=== PATIENT | female | born 1985 | race Caucasian/White ===

== ENCOUNTER 2019-01-09 12:34 | Inpatient (IN) | payer MEDICAID ==
[2019-01-09 14:57] LABS: ADD MAN DIFF? NO
[2019-01-09] MEDS ORDERED: MISOPROSTOL 200 MCG TAB PR (15:00)
[2019-01-09] MEDS ORDERED: LIDOCAINE 1% (MPF) 30 ML INJ INJ (15:00)
[2019-01-09] MEDS ORDERED: OXYTOCIN 30 UNITS/LR 500 ML IV (15:00)
[2019-01-09] MEDS ORDERED: BUTORPHANOL 2 MG INJ IV (15:00)
[2019-01-09] MEDS ORDERED: CARBOPROST 250 MCG INJ IM (15:00)
[2019-01-09] MEDS ORDERED: METHYLERGONOVINE 0.2 MG INJ IM (15:00)
[2019-01-09 15:02] LABS: WHITE BLOOD COUNT 9.7 10^3/ul (4.8-10.8)
[2019-01-09 15:02] LABS: BASOPHILS % 0.3 % (0.0-2.0); EOSINOPHILS % 0.4 % (0.0-7.0); LYMPHOCYTES # 1.6 10^3/ul (0.8-2.9); LYMPHOCYTES % 16.5 % (15.0-51.0); MEAN CORPUSCULAR HEMOGLOBIN 26.7 pg (29.0-33.0); MEAN CORPUSCULAR HGB CONC 31.4 g/dl (32.0-37.0); MEAN PLATELET VOLUME 11.3 fl (7.4-10.4); MONOCYTE # 0.7 10^3/ul (0.3-0.9); MONOCYTES % 7.7 % (0.0-11.0); NEUTROPHIL # 7.2 10^3/ul (1.6-7.5); NEUTROPHILS % 74.6 % (39.0-77.0); PLATELET COUNT 272 10^3/UL (140-415); RED BLOOD COUNT 4.12 10^6/ul (4.20-5.40); RED CELL DISTRIBUTION WIDTH 14.6 % (11.5-14.5)
[2019-01-09 15:17] LABS: INR 0.87; PROTIME 11.9 Sec (11.9-14.9); PT RATIO 0.9
[2019-01-09 15:18] LABS: PARTIAL THROMBOPLASTIN TIME 26.3 Sec (23.0-35.0)
[2019-01-09] MEDS: LACTATED RINGER'S 1,000 ML IV ×3 (15:25→20:16)
[2019-01-09] MEDS ORDERED: NALOXONE (0.4 MG/ML) INJ IV (16:00)
[2019-01-09] MEDS ORDERED: DIPHENHYDRAMINE 50 MG INJ IV (16:00)
[2019-01-09] MEDS ORDERED: HYDROmorphONE 0.5 MG/0.5 ML SYG IV ×2 (16:00)
[2019-01-09] MEDS ORDERED: KETOROLAC 30 MG INJ IV (16:00)
[2019-01-09] MEDS: OXYTOCIN 30 UNITS/LR 500 ML IV (17:00)
[2019-01-09 20:00] LABS: HEPATITIS B SURFACE ANTIGEN NEGATIVE (NEGATIVE)
[2019-01-10] MEDS: ONDANSETRON 4 MG INJ IV (00:50)
[2019-01-10] MEDS: FENTAnyl 2MCG/ML-ROPIV 0.2% 100 ML BAG EPI (01:04)
[2019-01-10] MEDS: LACTATED RINGER'S 1,000 ML IV (02:12)
[2019-01-10] MEDS: OXYTOCIN 30 UNITS/LR 500 ML IV ×2 (03:10→08:08)
[2019-01-10] MEDS: IBUPROFEN 600 MG TAB PO ×4 (06:16→23:18)
[2019-01-10] MEDS: MINERAL OIL LIGHT 10 ML VIAL TOP (06:17)
[2019-01-10] MEDS ORDERED: LANOLIN HPA 1 PKT TOP (06:30)
[2019-01-10] MEDS ORDERED: WITCH HAZEL/GLYCERIN PAD PR (06:30)
[2019-01-10] MEDS ORDERED: OXYCODONE/ASPIRIN (4.88/325) TAB PO (06:30)
[2019-01-10] MEDS ORDERED: MISOPROSTOL 200 MCG TAB PR (06:30)
[2019-01-10] MEDS ORDERED: OXYTOCIN 30 UNITS/LR 500 ML IV (06:30)
[2019-01-10] MEDS ORDERED: BENZOCAINE 20% 56 ML SPRAY TOP (06:30)
[2019-01-10] MEDS ORDERED: METHYLERGONOVINE 0.2 MG INJ IM (06:30)
[2019-01-10] MEDS ORDERED: CARBOPROST 250 MCG INJ IM (06:30)
[2019-01-10] MEDS ORDERED: ZOLPIDEM 5 MG TAB PO (06:30)
[2019-01-10] MEDS: OXYCODONE/ASPIRIN (4.88/325) TAB PO ×2 (08:43→09:45)
[2019-01-10] MEDS: SENNA/DOCUSATE NA (8.6MG/50MG) TAB PO ×3 (08:43→23:17)
[2019-01-10 19:23] LABS: RAPID PLASMA REAGIN NONREACTIVE (NR)
[2019-01-11] MEDS: IBUPROFEN 600 MG TAB PO ×4 (05:41→23:03)
[2019-01-11 08:20] LABS: ADD MAN DIFF? NO
[2019-01-11 08:28] LABS: BASOPHILS % 0.3 % (0.0-2.0); EOSINOPHILS # 0.1 10^3/ul (0.0-0.5); EOSINOPHILS % 1.2 % (0.0-7.0); HEMATOCRIT 27.3 % (37.0-47.0); HEMOGLOBIN 8.5 g/dl (12.0-16.0); LYMPHOCYTES # 2.1 10^3/ul (0.8-2.9); LYMPHOCYTES % 20.3 % (15.0-51.0); MEAN CORPUSCULAR HEMOGLOBIN 26.7 pg (29.0-33.0); MEAN CORPUSCULAR HGB CONC 31.1 g/dl (32.0-37.0); MEAN CORPUSCULAR VOLUME 85.8 fl (82.0-101.0); MEAN PLATELET VOLUME 12.1 fl (7.4-10.4); MONOCYTE # 0.7 10^3/ul (0.3-0.9); MONOCYTES % 6.5 % (0.0-11.0); NEUTROPHIL # 7.3 10^3/ul (1.6-7.5); NEUTROPHILS % 71.2 % (39.0-77.0); PLATELET COUNT 219 10^3/UL (140-415); RED BLOOD COUNT 3.18 10^6/ul (4.20-5.40); RED CELL DISTRIBUTION WIDTH 15.1 % (11.5-14.5)
[2019-01-11 08:28] LABS: WHITE BLOOD COUNT 10.2 10^3/ul (4.8-10.8)
[2019-01-11] MEDS: SENNA/DOCUSATE NA (8.6MG/50MG) TAB PO (12:23)
[2019-01-12] MEDS: IBUPROFEN 600 MG TAB PO ×2 (06:17→12:00)
[2019-01-12] MEDS ORDERED: DIPHTH/TET/ACEL PERTUSS (ADULT) 0.5 ML VIAL IM* (09:00)
[2019-01-12] MEDS: SENNA/DOCUSATE NA (8.6MG/50MG) TAB PO (09:00)
== END 2019-01-12 14:20 | disposition home or self-care (01) | DRG 998 ==
LOC: OBT 12:34 → PP1 01-10 06:01 → L-D 12:34 → OBT 14:05 → L-D 14:05
PROVIDERS: Specialist
PROC: 10D07Z8 Extraction of Products of Conception, Other, Via Natural or Artificial Opening (ICD-10-PCS; principal; 2019-01-09)
PROC: 3E033VJ Introduction of Other Hormone into Peripheral Vein, Percutaneous Approach (ICD-10-PCS; 2019-01-09)
DX: O76 Abnormality in fetal heart rate and rhythm complicating labor and delivery (principal); O66.5 Attempted application of vacuum extractor and forceps; Z3A.39 39 weeks gestation of pregnancy
CPT/HCPCS: 76818; 85025; 85610; 85730; 86592; 86850; 86900; 86901; 87340; 88307; 99464